=== PATIENT | male | born 1945 | race Caucasian/White ===

== ENCOUNTER 2017-09-15 07:18 | Day surgery (SDC) | payer MEDICARE, OTHER ==
[~2017-09-15] VITALS: Ht 177.8 cm; Wt 167.0 kg
[2017-09-15] MEDS ORDERED: CIPR500T87 PO (08:30)
[2017-09-15] MEDS ORDERED: APIX5TAB PO (08:31)
[2017-09-15] MEDS ORDERED: MULTIVITAMIN PO (08:31)
[2017-09-15] MEDS ORDERED: FINA5TAB4 PO (08:31)
[2017-09-15] MEDS ORDERED: LACTATED RINGERS 1,000 ML IV SCH (08:51)
[2017-09-15 08:52] VITALS: BP 141/72
[2017-09-15] MEDS ORDERED: PLEASE ENTER HEIGHT AND WEIGHT MC SCH (09:00)
[2017-09-15] MEDS ORDERED: LIDOCAINE-MPF 1%, 2ML INFIL ONE (09:00)
[2017-09-15] MEDS ORDERED: LIDOCAINE GEL 2%, 5ML ONE (11:38)
[2017-09-15] MEDS ORDERED: ALBUTEROL/IPRATROPIUM 2.5MG/0.5MG, 3 ML NPPB PRN (12:00)
[2017-09-15] MEDS ORDERED: ONDANSETRON 2MG/ML, 2ML IVPush PRN (12:00)
[2017-09-15] MEDS ORDERED: LABETALOL 5MG/ML, 20ML IV PRN (12:00)
[2017-09-15] MEDS ORDERED: ACETAMINOPHEN 325 MG TABLET PO PRN (12:00)
[2017-09-15] MEDS ORDERED: ALBUTEROL SULFATE 2.5 MG/3 ML NPPB PRN (12:00)
[2017-09-15] MEDS ORDERED: hydrALAzine 20 MG/ML, 1ML IV PRN (12:00)
[2017-09-15] MEDS ORDERED: PROMETHAZINE 12.5 MG SUPP PR PRN (12:00)
[2017-09-15] MEDS ORDERED: PROMETHAZINE 25 MG/ML, 1ML IV PRN (12:00)
[2017-09-15] MEDS ORDERED: FENTANYL PF 100 MCG/2ML IV PRN (12:00)
[2017-09-15] MEDS ORDERED: LABETALOL 5MG/ML, 20ML ONE (12:19)
[2017-09-15] MEDS ORDERED: PROPOFOL 10 MG/ML, 20ML ONE (15:29)
[2017-09-15] MEDS ORDERED: DEXAMETHASONE 4 MG/ML, 1ML ONE (15:29)
== END 2017-09-15 13:35 ==
LOC: OUT 07:18
PROVIDERS: ATTEND Internal Medicine Geriatric Medicine
DX: K62.1 Rectal polyp (principal); K29.80 Duodenitis without bleeding; K22.70 Barrett's esophagus without dysplasia; K57.30 Diverticulosis of large intestine without perforation or abscess without bleeding; K64.0 First degree hemorrhoids; G47.33 Obstructive sleep apnea (adult) (pediatric); N40.0 Benign prostatic hyperplasia without lower urinary tract symptoms
CPT/HCPCS: 43239; 45380; 88305; 93005; J1100; J2704

== ENCOUNTER → 2020-01-02 | Outpatient (CLI) | payer MEDICARE ==
[~2020-01-02] MED LIST: APIX5TAB PO; CIPR500T87 PO; FINA5TAB4 PO; MULTIVITAMIN PO
== END | disposition home or self-care (01) ==
LOC: CVU 14:25
PROVIDERS: ATTEND Internal Medicine Cardiovascular Disease
DX: I08.3 Combined rheumatic disorders of mitral, aortic and tricuspid valves (principal)
CPT/HCPCS: 93306